=== PATIENT | female | born 1995 | race Caucasian/White ===

== ENCOUNTER 2017-07-16 20:12 | Emergency (ER) | payer OTHER ==
[~2017-07-16] VITALS: Ht 162.6 cm; Wt 77.2 kg
[2017-07-16 20:31] VITALS: BP 151/80
[2017-07-16] MEDS ORDERED: diphenhydrAMINE HCL 25 MG CAPSULE PO ONE (21:15)
[2017-07-16] MEDS ORDERED: HYDROcodon/IBUPROFEN 7.5/200MG 1 TAB TABLET PO ONE (21:15)
[2017-07-16] MEDS ORDERED: predniSONE 10 MG TABLET PO ONE (21:15)
[2017-07-16] MEDS ORDERED: SMZ/TMP 800/160MG TABLET. PO ONE (21:15)
--- NOTE | 2017-07-16 21:20 | ED.ADGEN ---
Past History Past Medical History: No Pertinent History Past Surgical History: No Surgical History Alcohol Use: Occasionally Drug Use: None Adult General Chief Complaint Chief Complaint " I got stung by a bee .. Lt. ankle.. It is still swollen and hurts.." HPI HPI Patient is a 22 year old female who presents with history of bee sting to posterior area of left ankle near the Achilles tendon. Does have a injection site and surrounding edema, erythema and some localized cellulitis. No striations noted or adenopathy. Patient has good range of motion of ankle. Distal neurovascular intact. Patient up-to-date with tetanus. Patient signed to duty at [place] and follows at [facility]. Patient has not had previous problems with bee stings or wasp stings. No ill contacts. Recent travel home. . Review of Systems Review of Systems Constitutional: Denies fever or chills [] Eyes: Denies change in visual acuity, redness, or eye pain [] HENT: Denies nasal congestion or sore throat [] Respiratory: Denies cough or shortness of breath [] Cardiovascular: No additional information not addressed in HPI [] GI: Denies abdominal pain, nausea, vomiting, bloody stools or diarrhea [] : Denies dysuria or hematuria [] Musculoskeletal: Denies back pain or joint pain [] Integument: Denies rash or skin lesions []complaints to bee sting. Some localized cellulitis at sting site. Neurologic: Denies headache, focal weakness or sensory changes [] Endocrine: Denies polyuria or polydipsia [] Family History Family History Noncontributory Current Medications Current Medications Current Medications Medications (Trade) Dose Ordered Sig/Ta Start Time Stop Time Status Last Admin Dose Admin Diphenhydramine HCl (Benadryl) 50 mg 1X ONCE 07/16/17 21:15 07/16/17 21:16 DC 07/16/17 21:22 50 MG Hydrocodone Bitartrate/ Ibuprofen (Vicoprofen 7.5-200) 1 tab 1X ONCE 07/16/17 21:15 07/16/17 21:16 DC 07/16/17 21:23 1 TAB Prednisone (Prednisone) 50 mg 1X ONCE 07/16/17 21:15 07/16/17 21:16 DC 07/16/17 21:23 50 MG Trimethoprim/ Sulfamethoxazole (Bactrim Ds) 1 tab 1X ONCE 10/21/17 21:15 07/16/17 21:16 DC 07/16/17 21:22 1 TAB Allergies Allergies Allergies Coded Allergies Type Severity Reaction Last Updated Verified No Known Drug Allergies 07/16/17 No Physical Exam Physical Exam Constitutional: Well developed, well nourished, no acute distress, non-toxic appearance. [] HENT: Normocephalic, atraumatic, bilateral external ears normal, oropharynx moist, no oral exudates, nose normal. [] Eyes: PERRLA, EOMI, conjunctiva normal, no discharge. [] Neck: Normal range of motion, no tenderness, supple, no stridor. [] Cardiovascular:Heart rate regular rhythm, no murmur [] Lungs & Thorax: Bilateral breath sounds clear to auscultation [] Abdomen: Bowel sounds normal, soft, no tenderness, no masses, no pulsatile masses. [] Skin: Warm, dry, no erythema, no rash. [] Bee sting site as per history of present illness Back: No tenderness, no CVA tenderness. [] Extremities: No tenderness, no cyanosis, no clubbing, ROM intact, no edema. [] Findings of bee sting and localized cellulitis as per history of present illness Neurologic: Alert and oriented X 3, normal motor function, normal sensory function, no focal deficits noted. [] Psychologic: Affect anxious, judgement normal, mood normal. [] Current Patient Data Vital Signs Vital Signs Date Time Temp Pulse Resp B/P (MAP) Pulse Ox O2 Delivery O2 Flow Rate FiO2 07/16/17 20:31 98.7 20 20 98 Room Air EKG EKG [] Radiology/Procedures Radiology/Procedures [] Course & Med Decision Making Course & Med Decision Making Pertinent Labs and Imaging studies reviewed. (See chart for details) Patient massage Polysporin at envenomation site 4 times a day until completely healed. Patient is started Bactrim DS twice a day for 10 days. Take prednisone 50 mg day for 5 days. Benadryl 25-50 mg 4 times a day for the itching. Take over -the-counter Tylenol and ibuprofen as needed for pain and discomfort. Monitor closely for increase infection. Particularly if it appears to involve the Achilles tendon. Follow-up at [place]. Return if any concerns. Some concern about increasing sensitivity to bee or wasp stings. Current reaction appears to be localized or arthritis type reaction and not anaphylactic or anaphylactoid. [] Final Impression Final Impression 1. Bee sting 2. Localized cellulitis[] Problems: Dragon Disclaimer Dragon Disclaimer This electronic medical record was generated, in whole or in part, using a voice recognition dictation system. SHERRY PEREZ MD Jul 16, 2017 21:20
== END 2017-07-16 21:36 | disposition home or self-care (01) ==
LOC: ER 20:12
DX: T63.441A Toxic effect of venom of bees, accidental (unintentional), initial encounter (principal); L03.116 Cellulitis of left lower limb; Y92.89 Other specified places as the place of occurrence of the external cause
CPT/HCPCS: 99284; J7512; Q0163; 96360; 99285-25